=== PATIENT | female | born 1965 ===

== ENCOUNTER 2016-09-18 11:25 | Emergency (ER) | payer MEDICAID ==
[2016-09-18 11:27] VITALS: BMI 24.7
[2016-09-18 11:28] VITALS: BP 115/75; PULSE 81; RESP 16; TEMP 97.6; O2SAT 98
--- NOTE | 2016-09-18 11:33 | ED PDOC ---
Arrival/HPI - General Chief Complaint: Finger,Hand,&Wrist Time Seen by Provider: 09/18/16 11:31 Historian: Patient - History of Present Illness Narrative History of Present Illness (Text): 09/18/16 11:32 51 y/o female, pmh including heavy menstrual cycle, nkda, c/o lt. hand 2nd digit pain s/p heavy lifting yesterday. Aching pain, aggravated by movement, no numbness or tingling, no chest pain or shortness of breath, no skin discoloration, no other medical or psychological complaints. Past Medical History - Provider Review Nursing Documentation Reviewed: Yes - Infectious Disease Hx of Infectious Diseases: None - Pulmonary Hx Respiratory Disorders: Yes Hx Asthma: Yes - Genitourinary/Gynecological Hx Genitourinary Disorders: Yes Other/Comment: ovarian cysts - Psychiatric Hx Substance Use: No - Surgical History Hx Section: Yes Hx Tubal Ligation: Yes - Anesthesia Hx Anesthesia: No Family/Social History - Physician Review Nursing Documentation Reviewed: Yes Family/Social History: Unknown Family HX Smoking Status: Unknown If Ever Smoked Hx Alcohol Use: Yes Hx Substance Use: No Allergies/Home Meds Allergies/Adverse Reactions: Allergies No Known Allergies Allergy (Unverified 10/13/12 12:07) Home Medications: Home Meds Medication Instructions Recorded Confirmed Cholecalciferol (Vitamin D3) 50,000 unit PO QWK 09/18/16 09/18/16 [Vitamin D3] Cyanocobalamin (Vitamin B-12) 2,500 mcg PO DAILY 09/18/16 09/18/16 [Vitamin B12] Potassium Chloride [Klor-Con 10 meq PO DAILY 09/18/16 09/18/16 Sprinkle] Review of Systems - Review of Systems Constitutional: absent: Fatigue, Fevers Eyes: absent: Vision Changes ENT: absent: Hearing Changes Respiratory: absent: SOB, Cough Cardiovascular: absent: Chest Pain Gastrointestinal: absent: Abdominal Pain, Nausea, Vomiting Musculoskeletal: Arthralgias. absent: Back Pain, Neck Pain, Joint Swelling, Myalgias Skin: absent: Rash, Pruritis Neurological: absent: Headache, Dizziness Psychiatric: absent: Anxiety, Depression, Suicidal Ideation Physical Exam Vital Signs Reviewed: Yes Vital Signs Temp Pulse Resp BP Pulse Ox 09/18/16 11:28 97.6 F 81 16 115/75 98 Temperature: Afebrile Blood Pressure: Normal Pulse: Regular Respiratory Rate: Normal Appearance: Positive for: Well-Appearing, Non-Toxic, Comfortable Pain Distress: Mild Mental Status: Positive for: Alert and Oriented X 3 - Systems Exam Head: Present: Atraumatic, Normocephalic Pupils: Present: PERRL Extroacular Muscles: Present: EOMI Conjunctiva: Present: Normal Mouth: Present: Moist Mucous Membranes Neck: Present: Normal Range of Motion Respiratory/Chest: Present: Clear to Auscultation, Good Air Exchange. No: Respiratory Distress, Accessory Muscle Use Cardiovascular: Present: Regular Rate and Rhythm, Normal S1, S2. No: Murmurs Abdomen: Present: Normal Bowel Sounds. No: Tenderness, Distention, Peritoneal Signs Back: Present: Normal Inspection Upper Extremity: Present: Normal Inspection, Other. No: Cyanosis, Edema Lower Extremity: Present: Normal Inspection. No: Edema Neurological: Present: GCS=15, Speech Normal, Motor Func Grossly Intact, Gait Normal, Memory Normal Skin: Present: Warm, Dry, Normal Color. No: Rashes Psychiatric: Present: Alert, Oriented x 3, Normal Insight, Normal Concentration Medical Decision Making ED Course and Treatment: 09/18/16 11:32 -xray, splint 09/18/16 12:14 -xray show no fracture or dislocation, finger splint applied with neurovascular intact. -Discharge home with naproxen, ice compression, finger splint, follow up with your own pmd and hand specialist within 2 days, return to the ER for any new or worsening signs or symptoms. - RAD Interpretation Radiology Orders: 09/18/16 11:35 HAND LEFT 2ND DIGIT (FINGER) [RAD] Stat normal left hand radiograph Bend Up: Radiologist - Medication Orders Current Medication Orders: Discontinued Medications Ibuprofen (Motrin Tab) 600 mg PO STAT STA Stop: 09/18/16 11:37 Last Admin: 09/18/16 11:50 Dose: 600 mg - PA / [employer] / Resident Statement MD/DO has reviewed & agrees with the documentation as recorded. Disposition/Present on Arrival - Present on Arrival Any Indicators Present on Arrival: No History of DVT/PE: No History of Uncontrolled Diabetes: No Urinary Catheter: No History of Decub. Ulcer: No History Surgical Site Infection Following: None - Disposition Have Diagnosis and Disposition been Completed?: Yes Diagnosis: Finger injury, Finger pain Disposition: HOME/ ROUTINE Disposition Time: 11:37 Patient Plan: Discharge Condition: GOOD Additional Instructions: -Discharge home with naproxen, ice compression, finger splint, follow up with your own pmd and hand specialist within 2 days, return to the ER for any new or worsening signs or symptoms. Prescriptions: Naproxen 500 mg PO BID PRN #20 tab PRN Reason: Other Referrals: PCP,NO [Primary Care Provider] - Follow up with primary Freedom Matias MD [Staff Provider] - Follow up with primary Forms: [employer] ([employer]), WORK NOTE
--- NOTE | 2016-09-18 14:12 | RAD ---
PROCEDURE: Left Hand and 2nd digit Radiographs. HISTORY: lt. hand 2nd DIPJ pain COMPARISON: None. FINDINGS: BONES: Normal. No fracture. JOINTS: Normal. No osteoarthritic changes. SOFT TISSUES: Normal. OTHER FINDINGS: None. IMPRESSION: Normal left hand radiographs.
== END 2016-09-18 12:26 | disposition home or self-care (01) ==
LOC: ED 11:25
DX: S69.92XA Unspecified injury of left wrist, hand and finger(s), initial encounter (principal); X50.0XXA Overexertion from strenuous movement or load, initial encounter; M79.645 Pain in left finger(s)